=== PATIENT | male | born 1950 | race Caucasian/White ===

== ENCOUNTER 2019-10-23 09:55 | Outpatient (CLI) | payer OTHER ==
--- NOTE | 2019-10-23 11:30 | PET ---
PET CT WITH ATTENUATION CORRECTION: HISTORY: Lung cancer. Evaluate for progression of disease. COMPARISON: None. CORRELATION: Outside PET imaging report 09/07/2018. TECHNIQUE: PET scan with CT attenuation correction was performed from the base of the brain to the proximal thig hs following the intravenous administration of 11.8 mCi of [id number]. FINDINGS: HEAD AND NECK: No abnormal FDG localization. CHEST: No abnormal FDG localization. CT used for attenuation correction demonstrates consolidation with air bronchogram in the left upper lobe. There are patchy interstitial and groundglass opacities involving the left lower lobe. There is a moderate left-sided pleural effusion. Patchy groundglass op acities in the right lung. There is a nonhypermetabolic solid nodule in the right upper lobe measuring approximately 1 cm in maximum dimension. ABDOMEN AND PELVIS: No abnormal FDG localization. OSSEOUS STRUCTURES: No abnormal FDG localization. Mild mucosal thickening of the urinary bladder is noted on the CT used for attenuation correction. Cystoscopy if clinically warranted. IMPRESSION: 1. Presumed posttreatment changes in the left lung. Left lung consolidation. No evidence of abnormal FDG localization in the left hemithorax. 2. No abnormal fluorodeoxyglucose localization in the neck, abdomen or pelvis. 3. Nonhypermetabolic nodule in the right lung. 4. Mild mucosal thickening of the urinary bladder, nonspecific. Cystoscopy if clinically warranted. Transcribed Date/Time: 10/23/2019 11:44 AM
== END 2019-10-23 09:56 | disposition home or self-care (01) ==
LOC: PET 09:55
PROVIDERS: ATTEND Internal Medicine Hematology & Oncology
DX: C34.90 Malignant neoplasm of unspecified part of unspecified bronchus or lung (principal); R91.1 Solitary pulmonary nodule; J18.1 Lobar pneumonia, unspecified organism; N32.89 Other specified disorders of bladder
CPT/HCPCS: 78815; A9552

== ENCOUNTER 2020-01-23 08:59 | Outpatient (CLI) | payer OTHER ==
--- NOTE | 2020-01-23 11:41 | CT ---
CT CHEST WITH CONTRAST: INDICATION: Left lung cancer. Assess for recurrence. COMPARISON: Correlation is made to PET CT of 10/23/2019. There are no other comparison studies. FINDINGS: Moderate-sized left pleural effusion is again noted, unchanged from 10/23/2019. There is a left hilar mass with extension into the left upper lobe anteriorly along the mediastinum. This measures 8 cm AP dimension x 3.6 cm width in the axial plane. This mass compresses the left up per lobe pulmonary arteries and bronchial structures. There is associated dense left upper lobe atel ectasis which cannot be from mass density. There is pleural thickening along the anterior left upper chest wall associated with left upper lobe process. Hazy parenchymal changes in the left upper lobe may be post radiation. There appears to be some loculated fluid anterior medial left upper lobe region. The right lung is hyperexpanded. There is shift of the mediastinum to the left consistent with volum e loss on the left. There are mild centrilobular emphysematous changes in the right lung more prominent in the right uppe r lobe. The pulmonary arteries are opacified. No evidence of pulmonary embolus identified. The thoracic aor ta is unremarkable with mild atherosclerotic change. The osseous structures are unremarkable. Images through the upper abdomen are unremarkable. IMPRESSION: 1. A left hilar and left upper lobe mass density as described above. 2. Moderate-sized left pleural effusion. Evidence of loculated fluid in the anterior left upper lob e. 3. Pleural thickening and interstitial haziness in the left upper lobe consistent with post radiatio n change. 4. Findings do not appear significantly changed from the PET CT scan of 10/23/2019. POS: [facility]
[2020-01-23] MEDS ORDERED: Iopamidol-370 76% 500 ML 1 ML ONE (13:05)
== END 2020-01-23 09:00 | disposition home or self-care (01) ==
LOC: BICCT 08:59
PROVIDERS: ATTEND Internal Medicine Hematology & Oncology
DX: C34.12 Malignant neoplasm of upper lobe, left bronchus or lung (principal); J98.4 Other disorders of lung; J90 Pleural effusion, not elsewhere classified; J92.9 Pleural plaque without asbestos
CPT/HCPCS: 71260; 82565; Q9967

== ENCOUNTER 2020-05-11 09:42 | Outpatient (CLI) | payer OTHER ==
[~2020-05-11 09:42] MED LIST: Iopamidol-370 76% 500 ML 1 ML ONE
[2020-05-11 10:04] LABS: Estimated GFR-MDRD - POC Greater than 90
--- NOTE | 2020-05-11 11:27 | CT ---
CHEST CT WITH CONTRAST: COMPARISON: 01/23/2020. CORRELATION: CT used for attenuation correction for PET imaging 10/23/2019. HISTORY: Lung cancer. Status post XRT and chemotherapy. Evaluate for response. FINDINGS: Lower neck and axilla: No masses or lymphadenopathy. Mediastinum: No mass, lymphadenopathy or hematoma. Heart: Normal heart size. Scattered coronary calcifications. Small amount of pericardial fluid. Trachea and central bronchi: Patent. Subdiaphragmatic structures: There is appropriate enhancement of the solid organs. Aorta: No aneurysm or periaortic fat stranding. Osseous structures: No lytic or blastic lesions in the osseous structures. Pleural spaces: No evidence of a right pleural effusion. There is a small left-sided pleural effusion with an anterior loculated component, unchanged. Right lung: Minimal emphysematous changes with small blebs and bullae. There is a spiculated mass in the posterior right upper lobe, measuring 1.3 x 0.7 cm, previously measuring 1.2 x 0.6 cm. Nodule has been shown to be nonhypermetabolic on previous PET imaging. Left lung: Persistent consolidation with air bronchograms involving the left upper lobe. There is vol ume loss. Parenchymal consolidation measures 8.1 cm anterior posterior x 3.3 cm mediolateral. There is compensatory hyperinflation of the left lower lobe. There are areas of scarring atelectasis second gatito to the presence of pleural fluid. The degree of pleural fluid in the left hemithorax has decreased since the previous examination. The opacity involving the left upper lobe previously measur ed 3.6 x 8.0 cm. IMPRESSION: 1. Essentially stable mass occupying the left upper lobe. Findings may represent posttreatment change . There was no reported FDG avidity on previous PET imaging in this region. Underlying neoplastic process cannot be entirely excluded. 2. Interval decrease in size of a left-sided effusion. A component of loculated fluid in the anterior left hemithorax does remain. 2. Stable spiculated nonhypermetabolic nodule in the right lung. Transcribed Date/Time: 05/11/2020 11:44 AM
== END 2020-05-11 09:43 | disposition home or self-care (01) ==
LOC: BICCT 09:42
PROVIDERS: ATTEND Internal Medicine Hematology & Oncology
DX: C34.12 Malignant neoplasm of upper lobe, left bronchus or lung (principal); R91.8 Other nonspecific abnormal finding of lung field; J90 Pleural effusion, not elsewhere classified; R91.1 Solitary pulmonary nodule
CPT/HCPCS: 71260; 82565; Q9967

== ENCOUNTER 2020-12-03 12:34 | Outpatient (CLI) | payer OTHER ==
[~2020-12-03 12:34] MED LIST changes: +Iopamidol 370 76% 100 ML VIAL ONE; -Iopamidol-370 76% 500 ML 1 ML ONE
== END 2020-12-03 12:35 | disposition home or self-care (01) ==
LOC: CT 12:34
PROVIDERS: ATTEND Internal Medicine Hematology & Oncology
DX: C34.2 Malignant neoplasm of middle lobe, bronchus or lung (principal); C34.12 Malignant neoplasm of upper lobe, left bronchus or lung; J90 Pleural effusion, not elsewhere classified; J44.9 Chronic obstructive pulmonary disease, unspecified; J98.09 Other diseases of bronchus, not elsewhere classified; R91.1 Solitary pulmonary nodule
CPT/HCPCS: 71260; Q9967

== ENCOUNTER 2021-05-20 08:45 | Outpatient (CLI) | payer OTHER | END 2021-05-20 08:46 | disposition home or self-care (01) | LOC: BICMAMMO 08:45 | PROVIDERS: ATTEND Internal Medicine Hematology & Oncology | DX: M81.8 Other osteoporosis without current pathological fracture (principal); C34.12 Malignant neoplasm of upper lobe, left bronchus or lung; M85.89 Other specified disorders of bone density and structure, multiple sites | CPT/HCPCS: 71260; 77080; 82565 ==

== ENCOUNTER 2021-08-19 08:41 | Outpatient (CLI) | payer OTHER | END 2021-08-19 08:42 | disposition home or self-care (01) | LOC: BICCT 08:41 | PROVIDERS: ATTEND Internal Medicine Hematology & Oncology | DX: C34.12 Malignant neoplasm of upper lobe, left bronchus or lung (principal); M81.8 Other osteoporosis without current pathological fracture | CPT/HCPCS: 71260 ==

== ENCOUNTER 2022-08-11 08:06 | Outpatient (CLI) | payer OTHER ==
[2022-08-11] MEDS ORDERED: Iopamidol 370 76% 100 ML VIAL ONE (11:34)
== END 2022-08-11 08:07 | disposition home or self-care (01) ==
LOC: CT 08:06
PROVIDERS: ATTEND Internal Medicine Hematology & Oncology
DX: C34.12 Malignant neoplasm of upper lobe, left bronchus or lung (principal); J02.9 Acute pharyngitis, unspecified; R59.0 Localized enlarged lymph nodes; F17.210 Nicotine dependence, cigarettes, uncomplicated; M81.8 Other osteoporosis without current pathological fracture
CPT/HCPCS: 70491; 71260; 82565; Q9967

== ENCOUNTER 2023-01-30 09:35 | Outpatient (CLI) | payer OTHER ==
[2023-01-30] MEDS ORDERED: Iopamidol-370 76% 500 ML MDV (1 ML CHARGE) ONE (17:15)
== END 2023-01-30 09:36 | disposition home or self-care (01) ==
LOC: BICCT 09:35
PROVIDERS: ATTEND Internal Medicine Hematology & Oncology
DX: C34.12 Malignant neoplasm of upper lobe, left bronchus or lung (principal); M81.8 Other osteoporosis without current pathological fracture; F17.210 Nicotine dependence, cigarettes, uncomplicated
CPT/HCPCS: 71260; 82565; Q9967

== ENCOUNTER 2025-02-11 08:40 | Outpatient (CLI) | payer OTHER | END 2025-02-11 08:41 | disposition home or self-care (01) | LOC: BICCT 08:40 | PROVIDERS: ATTEND Internal Medicine Hematology & Oncology | DX: Z12.2 Encounter for screening for malignant neoplasm of respiratory organs (principal); F17.210 Nicotine dependence, cigarettes, uncomplicated; J90 Pleural effusion, not elsewhere classified; J98.11 Atelectasis | CPT/HCPCS: 71271 ==